=== PATIENT | female | born 1965 | race Caucasian/White ===

== ENCOUNTER 2017-06-08 16:13 | Inpatient (IN) | payer BC ==
[~2017-06-08] VITALS: Ht 162.6 cm; Wt 97.4 kg
[~2017-06-08 16:13] MED LIST: UNABLE
[2017-06-08] MEDS ORDERED: NORVASC 5MG5 MG/TAB PO (16:31)
[2017-06-08] MEDS ORDERED: LIPITOR 10MG10 MG PO (16:32)
[2017-06-08] MEDS ORDERED: MICARDIS HCT 121 TA1 PO (16:32)
[2017-06-08] MEDS ORDERED: GLUCOPHAGE1000 MG PO (16:32)
[2017-06-08 18:29] LABS: PH 5 (5-8); URINE APPEARANCE Cloudy; URINE BACTERIA Rare /hpf; URINE BILIRUBIN Negative (NEGATIVE); URINE BLOOD 2+ (NEGATIVE); URINE COLOR Yellow; URINE GLUCOSE 1+ (NEGATIVE); URINE KETONE Negative (NEGATIVE); URINE UROBILINOGEN Negative (NEGATIVE)
[2017-06-08 18:30] LABS: URINE WBC 20-50 /hpf
[2017-06-08 18:37] LABS: BASO # 0.1 (0.0-0.2); BASO % 0.4 % (0.0-2.0); EOS # 0.1 (0.0-0.7); EOS % 0.9 % (0-4.0); GRAN # 7.6 (1.4-6.5); GRAN % 66.2 % (42.2-75.2); HEMATOCRIT 36.1 % (37.0-47.0); HEMOGLOBIN 11.4 g/dl (12.5-16.0); LYMPH # 2.6 (1.2-3.4); LYMPH % 22.6 % (20.0-51.0); MEAN CELL VOLUME 80 fl (80.0-100.0); MEAN CORPUSCULAR HEMOGLOBIN 25 pg (27.0-31.0); MEAN CORPUSCULAR HGB CONC 32 g/dl (33.0-37.0); MONO # 1.1 (0.1-0.6); MONO % 9.6 % (1.7-9.3); PLATELET COUNT 312 K/mm3 (130-400); REDCELL DISTRIBUTION WIDTH-CV 15.7 % (11.5-14.5); WHITE BLOOD COUNT 11.4 K/mm3 (4.8-10.8)
[2017-06-08 18:48] LABS: ADJUSTED CALCIUM 8.9 mg/dL (8.4-10.2); ALBUMIN 4.6 gm/dL (3.5-5.0); BILIRUBIN,TOTAL 0.6 mg/dL (0.0-1.0); CALCIUM 9.4 mg/dL (8.4-10.2); CREATININE, serum 1.74 mg/dL (0.52-1.25); POTASSIUM 3.4 mmol/L (3.4-5.0); TOTAL PROTEIN 7.6 gm/dL (6.4-8.2)
[2017-06-08 20:46] VITALS: BP 134/83; PULSE 71; TEMP 97.4
[2017-06-08 23:29] VITALS: BP 97/56; PULSE 59; TEMP 97.4
[2017-06-09 03:21] VITALS: BP 103/67; PULSE 66; TEMP 98
[2017-06-09 08:16] VITALS: BP 102/64; PULSE 61; TEMP 97.4
[2017-06-09 11:34] VITALS: BP 104/70; PULSE 74; TEMP 98
[2017-06-09 15:12] VITALS: BP 103/65; PULSE 66; TEMP 98.4
[2017-06-09 20:13] VITALS: BP 115/67; PULSE 79; TEMP 98.1
[2017-06-09 21:48] LABS: AMPHETAMINE URINE NEGATIVE; BARBITURATES URINE NEGATIVE; BENZODIAZEPINES URINE NEGATIVE; BUPRENORPHINE URINE NEGATIVE; METHADONE URINE NEGATIVE; OPIATES URINE NEGATIVE; OXYCODONE URINE NEGATIVE; PHENCYCLIDINE URINE NEGATIVE; PROPOXYPHENE URINE NEGATIVE; THC CANNABINOIDS URINE NEGATIVE
[2017-06-10] VITALS (7 sets, daily range): BP systolic 106–134; BP diastolic 64–92; PULSE 68–85; TEMP 97.5–98.2
[2017-06-10 06:48] LABS: CALCIUM 8.4 mg/dL (8.4-10.2); CREATININE, serum 0.74 mg/dL (0.52-1.25); POTASSIUM 3.1 mmol/L (3.4-5.0)
[2017-06-11 04:55] VITALS: BP 119/69; PULSE 81; TEMP 97.2
[2017-06-11 07:48] VITALS: BP 119/66; PULSE 79; TEMP 98.6
[2017-06-11 11:46] VITALS: BP 125/88; PULSE 80; TEMP 98.1
[2017-06-11 15:47] VITALS: BP 115/68; PULSE 84; TEMP 97.9
[2017-06-11 20:25] VITALS: BP 141/88; PULSE 80; TEMP 98.1
[2017-06-12 00:13] VITALS: BP 122/79; PULSE 69; TEMP 97.8
[2017-06-12 04:26] VITALS: BP 109/67; PULSE 66; TEMP 97.7
[2017-06-12 07:55] VITALS: BP 141/93; PULSE 81; TEMP 98.3
[2017-06-12] MEDS ORDERED: THE MEDICINE S200 M2 PO (11:08)
[2017-06-12] MEDS ORDERED: DEPAKOTE ER 50500 MG PO (11:08)
[2017-06-12] MEDS ORDERED: VITAMIN B-2 100MG PO (11:09)
[2017-06-12] MEDS ORDERED: MAGNESIUM GLUC500 MG PO (11:10)
[2017-06-12 11:22] VITALS: BP 134/92; PULSE 76; TEMP 98.1
[2017-06-12] MEDS ORDERED: SEROQUEL XR50 MG PO (13:15)
== END 2017-06-12 14:02 | disposition home or self-care (01) | DRG 885 ==
LOC: COL.ER 16:13 → MEDICAL 20:10
PROVIDERS: Emergency Medicine; Nurse Practitioner
DX: F32.0 Major depressive disorder, single episode, mild (principal); N39.0 Urinary tract infection, site not specified; G43.909 Migraine, unspecified, not intractable, without status migrainosus; I10 Essential (primary) hypertension; E86.0 Dehydration; E87.6 Hypokalemia; F43.22 Adjustment disorder with anxiety; R41.0 Disorientation, unspecified; E74.39 Other disorders of intestinal carbohydrate absorption; Z79.84 Long term (current) use of oral hypoglycemic drugs
CPT/HCPCS: 90791-AI; A9585; J1956; J7030

== ENCOUNTER 2017-06-18 16:18 | Observation (INO) | payer BC ==
[~2017-06-18] VITALS: Ht 162.6 cm; Wt 94.5 kg
[~2017-06-18 16:18] MED LIST changes: +DEPAKOTE ER 50500 MG PO; +GLUCOPHAGE1000 MG PO; +LIPITOR 10MG10 MG PO; +MAGNESIUM GLUC500 MG PO; +MICARDIS HCT 121 TA1 PO; +NORVASC 5MG5 MG/TAB PO; +SEROQUEL XR50 MG PO; +THE MEDICINE S200 M2 PO; +VITAMIN B-2 100MG PO
[2017-06-18 17:11] LABS: BASO % 0.3 % (0.0-2.0); EOS # 0.2 (0.0-0.7); EOS % 1.8 % (0-4.0); GRAN # 5.6 (1.4-6.5); GRAN % 61.2 % (42.2-75.2); LYMPH # 2.5 (1.2-3.4); LYMPH % 27.5 % (20.0-51.0); MEAN CELL VOLUME 81 fl (80.0-100.0); MEAN CORPUSCULAR HGB CONC 32 g/dl (33.0-37.0); MEAN PLATELET VOLUME 10.8 fl (7.4-10.4); MONO # 0.8 (0.1-0.6); PLATELET COUNT 315 K/mm3 (130-400); RED BLOOD COUNT 4.39 M/mm3 (4.10-5.30); WHITE BLOOD COUNT 9.1 K/mm3 (4.8-10.8)
[2017-06-18 17:12] LABS: HEMATOCRIT 35.5 % (37.0-47.0); HEMOGLOBIN 11.3 g/dl (12.5-16.0); MEAN CORPUSCULAR HEMOGLOBIN 26 pg (27.0-31.0)
[2017-06-18 17:18] LABS: COLLECTION METHOD CLEAN CATCH
[2017-06-18 17:27] LABS: MUCOUS Present /lpf; PH 5 (5-8); SQUAMOUS EPITHELIAL 0-2 /hpf; URINE APPEARANCE Cloudy; URINE BACTERIA Rare /hpf; URINE BILIRUBIN Negative (NEGATIVE); URINE BLOOD Negative (NEGATIVE); URINE COLOR Amber; URINE GLUCOSE Negative (NEGATIVE); URINE KETONE Trace (NEGATIVE); URINE LEUKOCYTE ESTERASE 2+ (NEGATIVE); URINE PROTEIN(semi-quant) 1+ (NEGATIVE); URINE UROBILINOGEN Negative (NEGATIVE)
[2017-06-18 17:35] LABS: ADJUSTED CALCIUM 8.8 mg/dL (8.4-10.2); ALANINE AMINOTRANSFERASE 53 U/L (9-52); ALBUMIN 4.4 gm/dL (3.5-5.0); ALKALINE PHOSPHATASE 78 U/L (50-136); ANION GAP 16 mmol/L (7-16); BILIRUBIN,TOTAL 0.6 mg/dL (0.0-1.0); BLOOD UREA NITROGEN 15 mg/dL (7-17); CALCIUM 9.1 mg/dL (8.4-10.2); CARBON DIOXIDE 24 mmol/L (22-30); CHLORIDE 101 mmol/L (98-107); CREATININE, serum 0.85 mg/dL (0.52-1.25); GLUCOSE 136 mg/dL (74-106); LIPASE 51 U/L (23-300); POTASSIUM 3.2 mmol/L (3.4-5.0); SODIUM 140 mmol/L (137-145); TOTAL PROTEIN 7.3 gm/dL (6.4-8.2)
[2017-06-18 17:52] LABS: AMPHETAMINE URINE NEGATIVE; BARBITURATES URINE NEGATIVE; BENZODIAZEPINES URINE NEGATIVE; BUPRENORPHINE URINE NEGATIVE; METHADONE URINE NEGATIVE; OPIATES URINE NEGATIVE; OXYCODONE URINE NEGATIVE; PHENCYCLIDINE URINE NEGATIVE; PROPOXYPHENE URINE NEGATIVE; THC CANNABINOIDS URINE NEGATIVE; TRICYCLIC ANTIDEPRESS URINE NEGATIVE
[2017-06-18 19:05] LABS: ALCOHOL(ethanol),MEDICAL < 10 mg/dL; MAGNESIUM 1.4 mg/dL (1.6-2.3); PHOSPHOROUS 3.4 mg/dL (2.5-4.5); SALICYLATE < 1.0 mg/dL
[2017-06-19 08:00] VITALS: BP 131/90; PULSE 68; TEMP 97.2
[2017-06-19 09:06] VITALS: BP 131/90; PULSE 68; TEMP 97.2
== END 2017-06-19 16:40 ==
LOC: COL.ER 16:18 → ICU 06-19 06:34
PROVIDERS: Emergency Medicine
DX: F33.9 Major depressive disorder, recurrent, unspecified (principal); R41.83 Borderline intellectual functioning; I10 Essential (primary) hypertension
CPT/HCPCS: 90791-AI; G0378

== ENCOUNTER 2017-08-21 06:43 | Emergency (ER) | payer BC ==
[~2017-08-21] VITALS: Ht 162.6 cm; Wt 98.6 kg
[2017-08-21 06:47] VITALS: BP 126/93
[2017-08-21 07:22] LABS: COLLECTION METHOD CLEAN CATCH
[2017-08-21 07:23] LABS: BASO # 0.1 (0.0-0.2); BASO % 0.4 % (0.0-2.0); EOS # 0.1 (0.0-0.7); EOS % 1.1 % (0-4.0); GRAN # 9.6 (1.4-6.5); GRAN % 72.5 % (42.2-75.2); HEMATOCRIT 42.7 % (37.0-47.0); HEMOGLOBIN 13.2 g/dl (12.5-16.0); LYMPH # 2.3 (1.2-3.4); LYMPH % 17.6 % (20.0-51.0); MEAN CELL VOLUME 79 fl (80.0-100.0); MEAN CORPUSCULAR HEMOGLOBIN 24 pg (27.0-31.0); MEAN CORPUSCULAR HGB CONC 31 g/dl (33.0-37.0); MEAN PLATELET VOLUME 10.7 fl (7.4-10.4); MONO # 1.1 (0.1-0.6); PLATELET COUNT 378 K/mm3 (130-400); RED BLOOD COUNT 5.41 M/mm3 (4.10-5.30); WHITE BLOOD COUNT 13.2 K/mm3 (4.8-10.8)
[2017-08-21 07:33] LABS: ADJUSTED CALCIUM 8.9 mg/dL (8.4-10.2); ALBUMIN 4.9 gm/dL (3.5-5.0); BILIRUBIN,TOTAL 0.6 mg/dL (0.0-1.0); CALCIUM 9.6 mg/dL (8.4-10.2); CREATININE, serum 0.74 mg/dL (0.52-1.25); POTASSIUM 3.7 mmol/L (3.4-5.0); TOTAL PROTEIN 8.1 gm/dL (6.4-8.2)
[2017-08-21 07:41] LABS: MUCOUS Present /lpf; PH 5 (5-8); URINE APPEARANCE Hazy; URINE BACTERIA Rare /hpf; URINE BILIRUBIN Negative (NEGATIVE); URINE BLOOD Negative (NEGATIVE); URINE COLOR Yellow; URINE GLUCOSE Negative (NEGATIVE); URINE KETONE 1+ (NEGATIVE); URINE LEUKOCYTE ESTERASE 1+ (NEGATIVE); URINE PROTEIN(semi-quant) 2+ (NEGATIVE); URINE UROBILINOGEN Negative (NEGATIVE)
[2017-08-21 07:49] LABS: AMPHETAMINE URINE NEGATIVE; BARBITURATES URINE NEGATIVE; BENZODIAZEPINES URINE NEGATIVE; BUPRENORPHINE URINE NEGATIVE; METHADONE URINE NEGATIVE; OPIATES URINE NEGATIVE; OXYCODONE URINE NEGATIVE; PHENCYCLIDINE URINE NEGATIVE; PROPOXYPHENE URINE NEGATIVE; THC CANNABINOIDS URINE NEGATIVE; TRICYCLIC ANTIDEPRESS URINE NEGATIVE
[2017-08-21 07:52] LABS: ACETAMINOPHEN < 10 ug/mL (10-30); SALICYLATE < 1.0 mg/dL
[2017-08-21] MEDS ORDERED: MACROBID 1100 MG/CAP PO (10:18)
[2017-08-21 11:24] VITALS: PULSE 77; TEMP 98.1
== END 2017-08-21 11:24 | disposition home or self-care (01) ==
LOC: COL.ER 06:43
PROVIDERS: Emergency Medicine
DX: N39.0 Urinary tract infection, site not specified (principal); R41.3 Other amnesia; E11.9 Type 2 diabetes mellitus without complications; I10 Essential (primary) hypertension; F32.9 Major depressive disorder, single episode, unspecified; F29 Unspecified psychosis not due to a substance or known physiological condition; F20.9 Schizophrenia, unspecified; Z79.84 Long term (current) use of oral hypoglycemic drugs

== ENCOUNTER 2017-09-02 07:51 | Emergency (ER) | payer BC ==
[~2017-09-02] VITALS: Ht 162.6 cm; Wt 97.7 kg
[~2017-09-02 07:51] MED LIST changes: +MACROBID 1100 MG/CAP PO
[2017-09-02 07:53] VITALS: BP 129/88; TEMP 97.8
[2017-09-02 08:12] LABS: COLLECTION METHOD CLEAN CATCH
[2017-09-02 08:23] LABS: MUCOUS Present /lpf; PH 5 (5-8); SQUAMOUS EPITHELIAL 0-2 /hpf; URINE APPEARANCE Hazy; URINE BACTERIA None Seen /hpf; URINE BILIRUBIN Negative (NEGATIVE); URINE BLOOD 2+ (NEGATIVE); URINE COLOR Yellow; URINE GLUCOSE Negative (NEGATIVE); URINE KETONE Trace (NEGATIVE); URINE LEUKOCYTE ESTERASE 1+ (NEGATIVE); URINE PROTEIN(semi-quant) Negative (NEGATIVE); URINE RBC 0-2 /hpf; URINE UROBILINOGEN Negative (NEGATIVE)
[2017-09-02 08:57] LABS: BASO # 0.1 (0.0-0.2); BASO % 0.8 % (0.0-2.0); EOS # 0.2 (0.0-0.7); EOS % 2.4 % (0-4.0); GRAN # 4.5 (1.4-6.5); GRAN % 57.7 % (42.2-75.2); HEMATOCRIT 40.6 % (37.0-47.0); HEMOGLOBIN 12.5 g/dl (12.5-16.0); LYMPH # 2.3 (1.2-3.4); LYMPH % 29.7 % (20.0-51.0); MEAN CELL VOLUME 79 fl (80.0-100.0); MEAN CORPUSCULAR HEMOGLOBIN 24 pg (27.0-31.0); MEAN CORPUSCULAR HGB CONC 31 g/dl (33.0-37.0); MEAN PLATELET VOLUME 11.3 fl (7.4-10.4); MONO # 0.7 (0.1-0.6); MONO % 9.1 % (1.7-9.3); PLATELET COUNT 219 K/mm3 (130-400); RED BLOOD COUNT 5.17 M/mm3 (4.10-5.30); WHITE BLOOD COUNT 7.8 K/mm3 (4.8-10.8)
[2017-09-02 09:05] LABS: ADJUSTED CALCIUM 9.1 mg/dL (8.4-10.2); ALANINE AMINOTRANSFERASE 31 U/L (9-52); ALBUMIN 4.2 gm/dL (3.5-5.0); ALKALINE PHOSPHATASE 85 U/L (50-136); ANION GAP 12 mmol/L (7-16); BILIRUBIN,TOTAL 0.5 mg/dL (0.0-1.0); BLOOD UREA NITROGEN 15 mg/dL (7-17); CALCIUM 9.3 mg/dL (8.4-10.2); CARBON DIOXIDE 24 mmol/L (22-30); CHLORIDE 104 mmol/L (98-107); CREATININE, serum 0.69 mg/dL (0.52-1.25); GLUCOSE 136 mg/dL (74-106); LIPASE 37 U/L (23-300); POTASSIUM 3.8 mmol/L (3.4-5.0); SODIUM 139 mmol/L (137-145); TOTAL PROTEIN 7.3 gm/dL (6.4-8.2)
[2017-09-02] MEDS ORDERED: CEFTIN500 MG PO (09:09)
[2017-09-02 09:17] LABS: TROPONIN-I < 0.012 ng/mL (0.000-0.034)
[2017-09-02 09:28] VITALS: PULSE 86
== END 2017-09-02 09:28 | disposition home or self-care (01) ==
LOC: COL.ER 07:51
PROVIDERS: Emergency Medicine
DX: N39.0 Urinary tract infection, site not specified (principal); I10 Essential (primary) hypertension; F32.9 Major depressive disorder, single episode, unspecified; Z98.51 Tubal ligation status; Z79.84 Long term (current) use of oral hypoglycemic drugs; Z87.440 Personal history of urinary (tract) infections

== ENCOUNTER 2017-09-09 23:35 | Emergency (ER) | payer BC ==
[~2017-09-09] VITALS: Ht 162.6 cm; Wt 97.7 kg
[~2017-09-09 23:35] MED LIST changes: +CEFTIN500 MG PO
[2017-09-09 23:40] VITALS: TEMP 97.4
[2017-09-10 01:08] VITALS: BP 132/76; PULSE 78
== END 2017-09-10 01:09 | disposition home or self-care (01) ==
LOC: COL.ER 23:35
DX: R51 Headache (principal); I10 Essential (primary) hypertension; G43.909 Migraine, unspecified, not intractable, without status migrainosus; F32.9 Major depressive disorder, single episode, unspecified; Z98.51 Tubal ligation status; Z87.440 Personal history of urinary (tract) infections